=== PATIENT | female | born 1995 | race African-American/Black ===

== ENCOUNTER 2017-05-23 22:59 | Emergency (ER) | payer OTHER ==
[~2017-05-23] VITALS: Ht 152.4 cm; Wt 53.8 kg
[2017-05-24 01:41] LABS: APPEARANCE,URINE CLOUDY (CLEAR); GLUCOSE, URINE (UA) NEGATIVE (NEGATIVE); KETONES,URINE 15 mg/dL (NEGATIVE); LEUKOCYTE ESTERASE ,URINE MODERATE (NEGATIVE); OCCULT BLOOD,URINE MODERATE (NEGATIVE); PROTEIN,URINE TRACE (NEGATIVE)
[2017-05-24 01:43] LABS: ADD UA MICROSCOPIC YES
[2017-05-24 01:52] VITALS: BP 115/71
[2017-05-24 01:57] LABS: SQUAMOUS EPITHELIAL CELL,UR Few /LPF (None Seen)
== END 2017-05-24 02:00 | disposition left against medical advice (07) ==
LOC: EMS 23:05
DX: R10.2 Pelvic and perineal pain (principal); F17.200 Nicotine dependence, unspecified, uncomplicated; F12.90 Cannabis use, unspecified, uncomplicated
CPT/HCPCS: 87086; 99281